=== PATIENT | male | born 1990 | race Native Hawaiian/Other Pacific Islander ===

== ENCOUNTER 2016-09-06 16:20 | Emergency (ER) | payer OTHER ==
[~2016-09-06] VITALS: Ht 175.3 cm; Wt 72.6 kg
[2016-09-06 16:56] LABS: PLATELET COUNT 200 K/uL (142-355)
[2016-09-06 17:02] LABS: POTASSIUM 3.2 mmol/L (3.6-5.2); SODIUM 133 mmol/L (136-145)
[2016-09-06 17:24] LABS: PARTIAL THROMBOPLASTIN TIME 25.5 SECONDS (24.5-33.6)
[2016-09-06 18:14] VITALS: BP 120/68; TEMP 98
== END 2016-09-06 18:18 | disposition home or self-care (01) ==
LOC: ED 16:20
DX: K21.9 Gastro-esophageal reflux disease without esophagitis (principal)
CPT/HCPCS: 36415; 80053; 81000; 82550; 83880; 84484; 85027; 85610; 85730; 86318; 93005; 99283

== ENCOUNTER 2017-05-21 13:23 | Emergency (ER) | payer OTHER ==
[~2017-05-21] VITALS: Ht 177.8 cm; Wt 81.6 kg
[2017-05-21 13:42] VITALS: BP 121/85; TEMP 98.5
== END 2017-05-21 13:55 | disposition home or self-care (01) ==
LOC: ED 13:23
DX: L98.9 Disorder of the skin and subcutaneous tissue, unspecified (principal)
CPT/HCPCS: 99281

== ENCOUNTER 2018-08-12 15:22 | Emergency (ER) | payer OTHER ==
[~2018-08-12] VITALS: Ht 172.7 cm; Wt 86.2 kg
[2018-08-12 16:13] LABS: PLATELET COUNT 189 K/uL (142-355)
[2018-08-12 16:27] LABS: POTASSIUM 3.9 mmol/L (3.6-5.2)
[2018-08-12 20:23] VITALS: BP 130/75; TEMP 98.2
== END 2018-08-12 20:25 | disposition home or self-care (01) ==
LOC: ED 15:22
PROVIDERS: Family Medicine
DX: R10.30 Lower abdominal pain, unspecified (principal); S30.1XXA Contusion of abdominal wall, initial encounter; K62.5 Hemorrhage of anus and rectum; X50.1XXA Overexertion from prolonged static or awkward postures, initial encounter; Y92.69 Other specified industrial and construction area as the place of occurrence of the external cause
CPT/HCPCS: 74022; 80053; 81000; 82150; 82272; 83605; 83690; 85027; 96360; 96372; 96376; 99284; J1885; J2405; Q9963